=== PATIENT | male | born 1970 | race Caucasian/White ===

== ENCOUNTER 2017-05-06 11:27 | Emergency (ER) | payer MEDICAID ==
[2016-02-01 12:57] VITALS: Wt 86.2 kg
[~2017-05-06 11:27] MED LIST: DOCU-202 PO; LOR5/325 PO
--- NOTE | 2017-05-06 11:46 | ER Report ---
History and Physical Time Seen By MD: 11:32 HPI/ROS CHIEF COMPLAINT: Right hand infection HISTORY OF PRESENT ILLNESS: Patient is a 46-year-old male who presents the ED with complaint of right hand infection that is noted for the past 2 days. He states that 3 days ago cut his hand on some ice and started noticing last couple days increasing redness and swelling. He has noted some drainage from the right 5th finger. He states that he had a similar sore on his left 4th finger on the ventral aspect that is had for the past month but has not really been bothering him now. He denies any fever. He states that he has been living in his car for the past few days and astride to travel back to [place] where is from. REVIEW OF SYSTEMS: Constitutional: No fever, no chills. Cardiovascular: No chest pain, no palpitations. Respiratory: No cough, no shortness of breath. Musculoskeletal: No back pain. Skin: See history of present illness. Neurological: No headache. Allergies: Coded Allergies: No Known Drug Allergies (Unverified , 01/31/16) Home Meds Discontinued Scripts Docusate Sodium (DOCUSATE SODIUM) 100 Mg Capsule, 1 CAP PO BID, #30 CAPSULE 0 Refills Prov:ELIAZAR KOHLI MD 02/07/16 Hydrocodone Bit/Acetaminophen (HYDROCODON-ACETAMINOPHEN 5-325) 1 Each Tablet, 1- 2 TAB PO Q4H Y for MODERATE PAIN, #30 TAB 0 Refills Prov:ELIAZAR KOHLI MD 02/07/16 Reviewed Nurses Notes: Yes Old Medical Records Reviewed: Yes Hx Substance Use Disorder: Yes Hx Alcohol Use: Yes (DRINKS OCCASIONALLY) Constitutional Vital Sign - Last 24 Hours 05/06/17 11:38 Temp 98.4 Pulse 99 Resp 20 B/P (MAP) 171/98 Pulse Ox 93 O2 Delivery Room Air Physical Exam General Appearance: The patient is alert, has no immediate need for airway protection and no current signs of toxicity. She appears to be no acute distress. Eyes: Pupils equal and round no injection. Respiratory: Chest is non tender, lungs are clear to auscultation. Cardiac: regular rate and rhythm Gastrointestinal: Abdomen is soft and non tender, no masses, bowel sounds normal. Musculoskeletal: Neck: Neck is supple and non tender. Extremities have full range of motion and are non tender. Skin: A scab area on the middle right 5th phalanx with some slight surrounding erythema there is another similar sore on the right 5th metacarpal area on the dorsal aspect. No streaking noted up the arm. There is pain with palpation around these areas. There is no erythema around the joint areas. Radial pulses 2 + with normal capillary refill. Normal sensation. He does have full range of motion of the right hand and fingers but with some pain. DIFFERENTIAL DIAGNOSIS: After history and physical exam differential diagnosis was considered for right hand redness including cellulitis, osteomyelitis, and injury. This is an incomplete list. Medical Decision Making Data Points Result Diagram: 05/06/17 1150 05/06/17 1150 Laboratory Hematology Test 05/06/17 11:50 Red Blood Count 4.70 M/uL (4.00-5.60) Mean Corpuscular Volume 93.3 fL (80.0-96.0) Mean Corpuscular Hemoglobin 32.4 pg (26.0-33.0) Mean Corpuscular Hemoglobin Concent 34.7 g/dL (32.0-36.0) Red Cell Distribution Width 13.0 % (11.5-14.5) Mean Platelet Volume 7.5 fL (7.2-11.1) Neutrophils (%) (Auto) 62.6 % (39.4-72.5) Lymphocytes (%) (Auto) 26.6 % (17.6-49.6) Monocytes (%) (Auto) 9.2 % (4.1-12.4) Eosinophils (%) (Auto) 0.7 % (0.4-6.7) Basophils (%) (Auto) 0.9 % (0.3-1.4) Nucleated RBC Relative Count (auto) 0.0 /100WBC Neutrophils # (Auto) 6.5 K/uL (2.0-7.4) Lymphocytes # (Auto) 2.8 K/uL (1.3-3.6) Monocytes # (Auto) 1.0 K/uL (0.3-1.0) Eosinophils # (Auto) 0.1 K/uL (0.0-0.5) Basophils # (Auto) 0.1 K/uL (0.0-0.1) Nucleated RBC Absolute Count (auto) 0.00 K/uL Sodium Level 138 mmol/L (137-145) Potassium Level 3.5 mmol/L (3.5-5.0) Chloride Level 102 mmol/L (98-107) Carbon Dioxide Level 24 mmol/L (22-30) Blood Urea Nitrogen 6 mg/dl (9-21) Creatinine 0.60 mg/dl (0.66-1.25) Glomerular Filtration Rate Calc > 60.0 Random Glucose 104 mg/dl (75-110) Calcium Level 9.1 mg/dl (8.4-10.2) Total Bilirubin 0.4 mg/dl (0.2-1.3) Aspartate Amino Transf (AST/SGOT) 20 U/L (0-35) Alanine Aminotransferase (ALT/SGPT) 36 U/L (0-56) Alkaline Phosphatase 110 U/L (0-126) C-Reactive Protein 1.6 mg/dl (<1.0) Total Protein 8.2 gm/dl (6.3-8.2) Albumin 3.9 g/dl (3.5-5.0) Chemistry Test 05/06/17 11:50 White Blood Count 10.5 k/uL (4.5-11.0) Red Blood Count 4.70 M/uL (4.00-5.60) Hemoglobin 15.2 g/dL (14.0-18.0) Hematocrit 43.9 % (42.0-52.0) Mean Corpuscular Volume 93.3 fL (80.0-96.0) Mean Corpuscular Hemoglobin 32.4 pg (26.0-33.0) Mean Corpuscular Hemoglobin Concent 34.7 g/dL (32.0-36.0) Red Cell Distribution Width 13.0 % (11.5-14.5) Platelet Count 328 K/uL (150-450) Mean Platelet Volume 7.5 fL (7.2-11.1) Neutrophils (%) (Auto) 62.6 % (39.4-72.5) Lymphocytes (%) (Auto) 26.6 % (17.6-49.6) Monocytes (%) (Auto) 9.2 % (4.1-12.4) Eosinophils (%) (Auto) 0.7 % (0.4-6.7) Basophils (%) (Auto) 0.9 % (0.3-1.4) Nucleated RBC Relative Count (auto) 0.0 /100WBC Neutrophils # (Auto) 6.5 K/uL (2.0-7.4) Lymphocytes # (Auto) 2.8 K/uL (1.3-3.6) Monocytes # (Auto) 1.0 K/uL (0.3-1.0) Eosinophils # (Auto) 0.1 K/uL (0.0-0.5) Basophils # (Auto) 0.1 K/uL (0.0-0.1) Nucleated RBC Absolute Count (auto) 0.00 K/uL Glomerular Filtration Rate Calc > 60.0 Calcium Level 9.1 mg/dl (8.4-10.2) Total Bilirubin 0.4 mg/dl (0.2-1.3) Aspartate Amino Transf (AST/SGOT) 20 U/L (0-35) Alanine Aminotransferase (ALT/SGPT) 36 U/L (0-56) Alkaline Phosphatase 110 U/L (0-126) C-Reactive Protein 1.6 mg/dl (<1.0) Total Protein 8.2 gm/dl (6.3-8.2) Albumin 3.9 g/dl (3.5-5.0) EKG/Imaging Imaging Right Hand Xrays: IMPRESSION: Soft tissue swelling. Otherwise negative for acute bony abnormality. Report Dictated By: Dion Vaughn MD at 05/06/2017 12:18 PM Report E-Signed By: Dion Vaughn MD at 05/06/2017 12:23 PM ED Course/Re-evaluation ED Course Will obtain blood work. 05/06/2017 12:39:49 pm - discussed all labs and imaging with patient. All his labs are essentially normal with just a slightly elevated CRP. He has no evidence of osteomyelitis on his x-ray just some soft tissue swelling. He likely has a cellulitis of his right hand and will initially give him 1 g IV Rocephin and will cover him with Keflex and Bactrim to cover for staph and strep etiologies. Will complete and incision and drainage and culture. Patient was given 1 tablet of [place] 5/325 for pain. Procedure: Incision and drainage. The patient's abscess was located on the right handed finger. I obtained verbal consent from the patient to drain the abscess who was informed about the possibility of bleeding and pain. Patient was prepped with Betadine. 1% lidocaine was used as local anesthetic and also a digital block was completed of the right 5th finger. The abscess was incised with a #11 scalpel and a all amount of purulent/serosanguinous drainage was expressed. I irrigated the wound and placed some packing. The patient tolerated the procedure well. The procedure was performed by myself. Decision to Disposition Date: May 06, 2017 Decision to Disposition Time: 12:42 Depart Departure Latest Vital Signs Vital Signs Date Time Temp Pulse Resp B/P (MAP) Pulse Ox O2 Delivery O2 Flow Rate FiO2 05/06/17 11:38 98.4 99 20 171/98 93 Room Air Impression: Primary Impression: Cellulitis of right hand Condition: Improved Disposition: HOME OR SELF-CARE New Scripts Cephalexin 500 Mg Tab (KEFLEX 500 MG TAB) 500 Mg Tablet 500 MG PO Q6H, #40 TAB Prov: MARIETTA WARD PA-C 05/06/17 Sulfamethoxazole/Trimet 800-160 Mg Tab (BACTRIM DS TABLET) 1 Each Tablet 1 TAB PO Q12H, #20 TAB Prov: MARIETTA WARD PA-C 05/06/17 Patient Instructions: Cellulitis (ED) Additional Instructions: Monitor for any worsening signs or symptoms of infection including redness, swelling, discharge, fever. Follow-up with primary care provider in 2-3 days. If having any worsening or concerning symptoms may return to the emergency department. Take your antibiotics as prescribed. MARIETTA WARD PA-C May 06, 2017 11:46
[2017-05-06 12:00] LABS: PLATELET COUNT, AUTOMATED 328 K/uL (150-450)
[2017-05-06] MEDS ORDERED: APAP/HYDROCODONE 325/5 TAB PO ONE (12:20)
--- NOTE | 2017-05-06 12:27 | RADIOLOGY IMAGING REPORT ---
FAC[place] [facility] [place]IENT NAME: Emile Mina : 1970 MR: [id number] V: [id number] EXAM DATE: ORDERING PHYSICIAN: MARIETTA WARD TECHNOLOGIST: Location: [facility] Patient: Emile Mina : 1970 Visit/Account:[id number] Date of Sevice: 05/06/2017 Right hand, 3 views. HISTORY: Right hand sore, erythema of right fifth finger. COMPARISON: None. Moderate soft tissue swelling is present in the fifth finger and the dorsum of the hand. The fifth fi nger is slightly flexed. Mild degenerative changes are scattered in the fingers. No acute fractures o r focal bony destruction. No radiopaque foreign bodies. IMPRESSION: Soft tissue swelling. Otherwise negative for acute bony abnormality. Report Dictated By: Dion Vaughn MD at 05/06/2017 12:18 PM Report E-Signed By: Dion Vaughn MD at 05/06/2017 12:23 PM [id number]
[2017-05-06] MEDS ORDERED: cefTRIAXone 1 GM VIAL IVP ONE (12:40)
[2017-05-06] MEDS ORDERED: SULF-198 PO (12:44)
[2017-05-06] MEDS ORDERED: CEPH500T7 PO (12:44)
[2017-05-06 13:11] VITALS: BP 185/104
== END 2017-05-06 13:20 | disposition home or self-care (01) ==
LOC: ER 11:42
DX: L03.113 Cellulitis of right upper limb (principal)
CPT/HCPCS: 10060; 73130; 85025; 86140; 96374; 99284; J0696; 82040; 82247; 82310; 82374; 82435; 82565; 82947; 84075; 84132; 84155; 84295; 84450; 84460; 84520